=== PATIENT | female | born 1975 | race Caucasian/White ===

== ENCOUNTER 2022-12-19 09:22 | Outpatient (CLI) | payer OTHER, SELFPAY ==
--- NOTE | ~2022-12-19 | MR_ITS ---
MRI of the left knee Clinical history: Arthritis Technique: Coronal proton density and proton density-weighted images, sagittal proton-density and T2 fat-sat images, and axial proton-density fat-saturated images were acquired. Findings: Anterior and posterior cruciate ligament are intact. Medial collateral ligament and the lat eral collateral ligament complex are intact. Popliteus tendon is intact. Horizontal tear of the posterior horn of the lateral meniscus is present. Focal peripheral vertical t ear of the posterior horn of the medial meniscus is present. 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 Articular cartilage in the la teral compartment is well preserved. Patellofemoral articular cartilage is also well preserved. Minim al osteophyte formation is noted about the knee. Extensor mechanism is intact. There is no significant joint effusion or Leonard's cyst. Impression: Horizontal tear of the posterior horn of the lateral meniscus. Focal vertical tear at the posterior horn of the medial meniscus. Mild tricompartmental degenerative change, worst in the medial compartment. Reviewed, dictated and finalized at location . Impression: Horizontal tear of the posterior horn of the lateral meniscus. Focal vertical tear at the posterior horn of the medial meniscus. Mild tricompartmental degenerative change, worst in the medial compartment.
== END 2022-12-19 09:23 | disposition home or self-care (01) ==
PROVIDERS: PCP Physician Assistant
DX: M17.12 Unilateral primary osteoarthritis, left knee (principal); S83.282A Other tear of lateral meniscus, current injury, left knee, initial encounter; S83.242A Other tear of medial meniscus, current injury, left knee, initial encounter; Z87.828 Personal history of other (healed) physical injury and trauma
CPT/HCPCS: 73721